=== PATIENT | female | born 1965 | race Caucasian/White ===

== ENCOUNTER 2020-01-13 15:56 | Emergency (ER) | payer BC ==
[~2020-01-13] VITALS: Ht 160 cm; Wt 85.7 kg
--- NOTE | 2020-01-13 16:45 | NUR ---
PT IS IN ROOM #2A. DR LOU EVALUATED THE PT.
--- NOTE | 2020-01-13 17:51 | NUR ---
PT WAS RE-EVALUATED BY DR LOU. PT WAS D/C'd TO HOME. D/C INSTRUCTIONS GIVE NO THE PT.
[2020-01-13 17:53] VITALS: BP 133/71
== END 2020-01-13 17:53 | disposition home or self-care (01) ==
LOC: ER 15:59
DX: S89.92XA Unspecified injury of left lower leg, initial encounter (principal); S79.912A Unspecified injury of left hip, initial encounter; Z88.8 Allergy status to other drugs, medicaments and biological substances; W01.0XXA Fall on same level from slipping, tripping and stumbling without subsequent striking against object, initial encounter; Y93.89 Activity, other specified; Y92.89 Other specified places as the place of occurrence of the external cause; Y99.8 Other external cause status
CPT/HCPCS: A4663